=== PATIENT | female | born 1990 | race Caucasian/White ===

== ENCOUNTER 2017-10-14 09:27 | Emergency (ER) | payer MEDICAID, OTHER ==
[2017-10-14 09:37] VITALS: O2SAT 99
--- NOTE | 2017-10-14 10:27 | C.PDOC ---
History Of Present Illness 27 year old female presents to the ED with complaints of seizure, jerk-like movements for one month. Patient reports she is awake and alert during the "twitching" episodes with no known precipitates. Patient denies incontinence to urine or stool, tongue biting, knew medications, history of seizure, exposure to toxins of any known attributing issues, or other complaints at this time. Time Seen by Provider: 10/14/17 09:45 Chief Complaint (Nursing): Seizure History Per: Patient History/Exam Limitations: no limitations Recent Seizure Activity Began: Unknown Length Of Seizures (Duration): Seconds Quality Of Seizure: Generalized Precipitating Factor(s): None Post-ictal Period: No Recent travel outside of the [place]: No Past Medical History Reviewed: Historical Data, Nursing Documentation, Vital Signs Vital Signs: Last Vital Signs Temp 97.9 F 10/14/17 09:37 Pulse 67 10/14/17 09:37 Resp 20 10/14/17 09:37 BP 110/70 10/14/17 09:37 Pulse Ox 99 10/14/17 12:18 - Medical History PMH: Anxiety, Asthma, Bronchitis, Pneumonia Surgical History: Appendectomy (2005) - [facility] Procedures CLOSURE SKIN & SUBCUTANEOUS NEC (11/02/14) Family History: States: Unknown Family Hx - Social History Hx Alcohol Use: Yes Hx Substance Use: No - Immunization History Hx Tetanus Toxoid Vaccination: (UTD) Hx Influenza Vaccination: No Hx Pneumococcal Vaccination: No Review Of Systems Constitutional: Negative for: Fever, Chills Cardiovascular: Negative for: Chest Pain, Palpitations Respiratory: Negative for: Cough, Shortness of Breath Gastrointestinal: Negative for: Nausea, Vomiting, Abdominal Pain, Diarrhea Physical Exam - Physical Exam Appears: Non-toxic, No Acute Distress Skin: Warm, Dry, No Rash Head: Atraumatic, Normacephalic, No Tenderness Eye(s): bilateral: Normal Inspection, PERRL, EOMI Oral Mucosa: Moist Tongue: Normal Appearing, No Bite Neck: Normal ROM, Supple Chest: Symmetrical, No Deformity Cardiovascular: Rhythm Regular, No Murmur Respiratory: No Rales, No Rhonchi, No Wheezing, Other (clear to auscultation bilaterally ) Gastrointestinal/Abdominal: Soft, No Tenderness, No Distention, No Guarding, No Rebound Extremity: Normal ROM, No Tenderness Neurological/Psych: Oriented x3, Normal Speech, Normal Cognition, Normal Cranial Nerves, No Cerebellar Signs, Normal Motor, Normal Sensation ED Course And Treatment - Laboratory Results Result Diagrams: 10/14/17 10:30 10/14/17 10:30 O2 Sat by Pulse Oximetry: 99 (RA) Pulse Ox Interpretation: Normal - CT Scan/US Head CT W/O contrast Other Rad Studies (CT/US): Read By Radiologist, Radiology Report Reviewed CT/US Interpretation: FINDINGS: HEMORRHAGE: No intracranial hemorrhage. BRAIN : No mass effect or edema. No atrophy or chronic microvascular ischemic changes.Please note that MRI with diffusion imaging is more sensitive in the detection of acute ischemic event. VENTRICLES: No hydrocephalus. CALVARIUM: Unremarkable. PARANASAL SINUSES: Unremarkable as visualized. No significant inflammatory changes. MASTOID AIR CELLS: Unremarkable as visualized. No inflammatory changes. OTHER FINDINGS: None. IMPRESSION: No acute intracranial pathology identified. Progress Note: Head CT, blood work, and labs were ordered. Results were within normal limits, patient instructed to follow up with Dr. Valladares as neurologist. Disposition Counseled Patient/Family Regarding: Studies Performed, Diagnosis, Need For Followup - Disposition Referrals: Addison Valladares MD [Staff Provider] - Disposition: HOME/ ROUTINE Disposition Time: 12:15 Condition: STABLE Additional Instructions: follow up with neurology in 2 days call to make an appointment return to hospital if symptoms worsens or progress Instructions: Tremors (ED) Forms: [facility] (Chinese), General Discharge Instructions - Clinical Impression Clinical Impression: Involuntary movements, Twitching - Scribe Statement The provider has reviewed the documentation as recorded by the Scribmandi Griffin All medical record entries made by the Pavelibmandi were at my direction and personally dictated by me. I have reviewed the chart and agree that the record accurately reflects my personal performance of the history, physical exam, medical decision making, and the department course for this patient. I have also personally directed, reviewed, and agree with the discharge instructions and disposition.
[2017-10-14 10:39] LABS: BASO % 0.4 % (0.0-2.0); EOS # 0.1 K/uL (0.0-0.7); EOS % 2.2 % (0.0-4.0); HEMATOCRIT 37.5 % (34.0-47.0); LYMPH # 1.7 K/uL (1.0-4.3); LYMPH % 41.7 % (20.0-40.0); MEAN CELL VOLUME 89.5 fL (81.0-99.0); MEAN CORPUSCULAR HEMOGLOBIN 30.2 pg (27.0-31.0); MEAN CORPUSCULAR HGB CONC 33.8 g/dL (33.0-37.0); MONO # 0.4 K/uL (0.0-0.8); MONO % 9.8 % (0.0-10.0); NRBC % 0.1 % (0.0-2.0); RED CELL DISTRIBUTION WIDTH 12.2 % (11.5-14.5); WHITE BLOOD COUNT 4.1 K/uL (4.8-10.8)
[2017-10-14 10:54] LABS: RBC URINE 1 /hpf (0-3); URINE BILIRUBIN NEGATIVE (NEGATIVE); URINE BLOOD NEGATIVE (NEGATIVE); URINE COLOR Yellow (YELLOW); URINE GLUCOSE (UA) NORMAL (Normal); URINE KETONE NEGATIVE (NEGATIVE); URINE LEUKOCYTE ESTERASE NEG Leu/uL (Negative); URINE PROTEIN 1+ mg/dL (NEGATIVE); URINE UROBILINOGEN NORMAL mg/dL (0.2-1.0); WBC URINE 3 /hpf (0-5)
--- NOTE | 2017-10-14 10:56 | CT ---
PROCEDURE: CT HEAD WITHOUT CONTRAST. HISTORY: seizure COMPARISON: None available. TECHNIQUE: Axial computed tomography images were obtained through the head/brain without intravenous contrast. Radiation dose: Total exam DLP = 768.47 mGy-cm. This CT exam was performed using one or more of the following dose reduction techniques: Automated exposure control, adjustment of the mA and/or kV according to patient size, and/or use of iterative reconstruction technique. FINDINGS: HEMORRHAGE: No intracranial hemorrhage. BRAIN: No mass effect or edema. No atrophy or chronic microvascular ischemic changes.Please note that MRI with diffusion imaging is more sensitive in the detection of acute ischemic event. VENTRICLES: No hydrocephalus. CALVARIUM: Unremarkable. PARANASAL SINUSES: Unremarkable as visualized. No significant inflammatory changes. MASTOID AIR CELLS: Unremarkable as visualized. No inflammatory changes. OTHER FINDINGS: None. IMPRESSION: No acute intracranial pathology identified.
[2017-10-14 11:23] LABS: THYROID STIMULATING HORMONE 0.58 mIU/L (0.46-4.68)
[2017-10-14 11:57] LABS: ALB/GLOB RATIO 1.6 (1.0-2.1); ALKALINE PHOSPHATASE 53 U/L (38-126); ALT/SGPT 27 U/L (9-52); AST/SGOT 17 U/L (14-36); BLOOD UREA NITROGEN 8 mg/dL (7-17); CALCIUM 8.9 mg/dl (8.6-10.4); CARBON DIOXIDE 26 mmol/L (22-30); CHLORIDE 102 mmol/L (98-107); GFR AFRICAN-AMERICAN > 60; GLUCOSE,RANDOM 91 mg/dL (65-105); MAGNESIUM 1.9 mg/dL (1.6-2.3); POTASSIUM 3.6 mmol/L (3.6-5.2); SODIUM 137 mmol/L (132-148); TOTAL PROTEIN 7.2 g/dL (6.3-8.3)
[2017-10-14 12:44] VITALS: BP 102/62; PULSE 72; RESP 18; TEMP 97.8
== END 2017-10-14 12:56 | disposition home or self-care (01) ==
LOC: C.ER 09:27
DX: R25.3 Fasciculation (principal)

== ENCOUNTER 2018-10-27 09:55 | Emergency (ER) | payer MEDICAID, OTHER ==
[2018-10-27 09:55] VITALS: BMI 22.3
[2018-10-27 10:16] VITALS: TEMP 97.9
[2018-10-27 13:18] LABS: BARBITURATES, UR NEGATIVE (NEGATIVE); BENZODIAZEPINES, UR NEGATIVE (NEGATIVE); OPIATES, UR NEGATIVE (NEGATIVE); PHENCYCLIDINE, UR NEGATIVE (NEGATIVE)
--- NOTE | 2018-10-27 13:24 | C.PDOC ---
History Of Present Illness 28 yo female w/PMHx of "anxiety attack gradually developed for past week". Pt sts, " suffer from anxiety attack for past year and when its getting worse, feel my chest tightness". Pt admits, was seen yesterday at [facility] " did not get any help". At present time, pt appears depressed, crying. Pt denies headache, dizziness, visual changes, neck pain, palpitation, diaphoresis, chest pain, abd. pain, N/V/D, UTI sx. Time Seen by Provider: 10/27/18 11:35 Chief Complaint (Nursing): Anxiety History Per: Patient Past Medical History Reviewed: Historical Data, Nursing Documentation, Vital Signs Vital Signs: Last Vital Signs Temp 97.9 F 10/27/18 10:08 Pulse 99 H 10/27/18 10:08 Resp 18 10/27/18 10:08 BP 123/79 10/27/18 10:08 Pulse Ox 100 10/27/18 10:08 - Medical History PMH: Anxiety, Asthma, Bronchitis, Pneumonia Denies: Diabetes, Hepatitis, HIV, HTN, Chronic Kidney Disease, Seizures, Sexually Transmitted Disease Surgical History: Appendectomy (2005) - [facility] Procedures CLOSURE SKIN & SUBCUTANEOUS NEC (11/02/14) Family History: States: Unknown Family Hx - Social History Hx Tobacco Use: No Hx Alcohol Use: No Hx Substance Use: No - Immunization History Hx Tetanus Toxoid Vaccination: (UTD) Hx Influenza Vaccination: No Hx Pneumococcal Vaccination: No Review Of Systems Except As Marked, All Systems Reviewed And Found Negative. Constitutional: Negative for: Fever, Chills Eyes: Negative for: Vision Change ENT: Negative for: Throat Pain Cardiovascular: Negative for: Palpitations, Orthopnea, Edema, Light Headedness Respiratory: Negative for: Cough Gastrointestinal: Negative for: Nausea, Vomiting, Abdominal Pain, Diarrhea Genitourinary: Negative for: Dysuria Musculoskeletal: Negative for: Neck Pain Neurological: Negative for: Weakness, Numbness, Altered Mental Status, Dizziness Physical Exam - Physical Exam Appears: Well, Non-toxic, Other (crying, depressed) Skin: Normal Color, Warm, Dry Head: Atraumatic, Normacephalic Eye(s): bilateral: PERRL Nose: No Flaring Oral Mucosa: Moist Throat: No Erythema Neck: Trachea Midline, Supple, Other Cardiovascular: Rhythm Regular, No Murmur, No JVD, Other ((-) carotid bruits B/L) Respiratory: No Decreased Breath Sounds, No Accessory Muscle Use, No Stridor, No Wheezing Gastrointestinal/Abdominal: Soft, No Tenderness, No Distention, No Guarding Back: No CVA Tenderness Extremity: Normal ROM, No Calf Tenderness, No Deformity, No Swelling Neurological/Psych: Oriented x3, Normal Speech, Normal Motor, Normal Sensation, Normal Reflexes ED Course And Treatment ECG: Interpreted By Me, Viewed By Me ECG Rhythm: Sinus Rhythm ECG Interpretation: Normal Interpretation Of ECG: SR@81/min, NAD, no acute T wave or ST-T Changes O2 Sat by Pulse Oximetry: 100 Pulse Ox Interpretation: Normal Progress Note: On re-eval, pt appears much more comofrtable now, awake, happy, smilling, denies any active complaints. Pt is afebrile, hemodynamicaly stable. NOn-toxic. PuslEOx 100% RA. neck: Supple, (-) JVD. Lungs: CTA B/L, BS equal B/L. CVS: (+)S1S2, reg. Abd: benign. neuorlogicaly intact. EKG- no acute abnormalities. Pt was seen by [facility], and psychiatricaly cleared with scheduled outpt psych appoitment. Pt advised, stable for discharge now. Disposition Counseled Patient/Family Regarding: Studies Performed, Diagnosis, Need For Followup - Disposition Referrals: Pankaj Jovel MD [Medical Doctor] - Disposition: HOME/ ROUTINE Disposition Time: 13:19 Condition: STABLE Additional Instructions: Follow up with Psychiatrist as per discussed/scheduled by PES for further evaluation and treatment return if any new changes. Instructions: Anxiety, Adult (DC) - Clinical Impression Clinical Impression: Anxiety
[2018-10-27 13:36] VITALS: BP 132/85; PULSE 84; RESP 16; O2SAT 98
--- NOTE | 2018-10-28 23:51 | CARD ---
APPROVED REPORT Date of service: 10/27/2018 EKG Measurement Heart [id number] <Conclusion> Sinus rhythm with sinus arrhythmia with short LA Otherwise normal ECG
== END 2018-10-27 13:35 | disposition home or self-care (01) ==
LOC: C.ER 09:55
DX: F41.9 Anxiety disorder, unspecified (principal)

== ENCOUNTER 2018-12-09 07:27 | Emergency (ER) | payer OTHER ==
[2018-12-09 07:27] VITALS: BMI 22.3
[2018-12-09 07:41] VITALS: RESP 18; TEMP 97.5
[2018-12-09] MEDS ORDERED: Sodium Chloride 0.9% 1,000 ML IV ONE (08:50)
--- NOTE | 2018-12-09 08:50 | C.PDOC ---
History Of Present Illness 28 y/o female presents to the ER complaining of myalgia which has become gradually worse over the past 3 days. Patient states that she is not able to control her body movements. Patient reports that she has cramping in her whole body which is causing her stomach to contract. She notes that she has associated nausea and abdominal wall cramping.Denies having fever and chills. Of note, patient has history of anxiety, she denies taking regular medications for anxiety. Time Seen by Provider: 12/09/18 08:22 Chief Complaint (Nursing): Abdominal Pain History Per: Patient History/Exam Limitations: no limitations Onset/Duration Of Symptoms: Days Current Symptoms Are (Timing): Still Present Severity: Moderate Past Medical History Reviewed: Historical Data, Nursing Documentation, Vital Signs Vital Signs: Last Vital Signs Temp 97.5 F L 12/09/18 07:37 Pulse 109 H 12/09/18 07:37 Resp 18 12/09/18 07:37 BP 110/65 12/09/18 07:37 Pulse Ox 97 12/09/18 07:37 - Medical History PMH: Anxiety, Asthma, Bronchitis, Pneumonia Denies: Diabetes, Hepatitis, HIV, HTN, Chronic Kidney Disease, Seizures, Sexually Transmitted Disease Surgical History: Appendectomy (2005) - [facility] Procedures CLOSURE SKIN & SUBCUTANEOUS NEC (11/02/14) Family History: States: No Known Family Hx - Social History Hx Tobacco Use: No Hx Alcohol Use: No Hx Substance Use: No - Immunization History Hx Tetanus Toxoid Vaccination: (UTD) Hx Influenza Vaccination: No Hx Pneumococcal Vaccination: No Review Of Systems Except As Marked, All Systems Reviewed And Found Negative. Constitutional: Negative for: Fever, Chills Gastrointestinal: Positive for: Nausea, Abdominal Pain. Negative for: Vomiting, Diarrhea Genitourinary: Negative for: Dysuria, Hematuria Neurological: Positive for: Other (myalgia) Physical Exam - Physical Exam Appears: No Acute Distress Skin: Normal Color, Warm, Dry Head: Atraumatic, Normacephalic Eye(s): bilateral: Normal Inspection Cardiovascular: Rhythm Regular Respiratory: Other (NARD) Gastrointestinal/Abdominal: Soft, No Tenderness, No Guarding, No Rebound, Other (contracted) Neurological/Psych: Oriented x3, Normal Speech, Other (neuro: periodic intermittent asymmetric movements distractible psych: mildly anxious, calm, cooperative) ED Course And Treatment - Laboratory Results Result Diagrams: 12/09/18 09:08 12/09/18 09:08 Urine POC: Negative O2 Sat by Pulse Oximetry: 97 (RA) Pulse Ox Interpretation: Normal Progress - Re-Evaluation Re-evaluation Note: 12/09/18 10:34 MYALGIA, CONTRACTIONS RESOLVED. PS FEELS BETTER - Data Reviewed Data Reviewed: Lab, Old records Medical Decision Making Medical Decision Making: Plan: --Labs --UA --HCG --IV Fluids --Toradol IV --Versed IV --Xanax PO --Zofran IV Disposition Counseled Patient/Family Regarding: Studies Performed, Diagnosis, Need For Followup - Disposition Referrals: YOUR,PMD [Other] Disposition: HOME/ ROUTINE Disposition Time: 10:34 Condition: IMPROVED Instructions: Muscle and Bone Pain (DC) Forms: [facility] (Yi), Work Excuse - Clinical Impression Clinical Impression: Abdominal wall pain, Anxiety, Myalgia - Scribe Statement The provider has reviewed the documentation as recorded by the Shweta Fairchild Provider Attestation: All medical record entries made by the Shweta were at my direction and personally dictated by me. I have reviewed the chart and agree that the record accurately reflects my personal performance of the history, physical exam, medical decision making, and the department course for this patient. I have also personally directed, reviewed, and agree with the discharge instructions and disposition
[2018-12-09] MEDS ORDERED: Midazolam 2 MG/2 ML VIAL IV STA (08:51)
[2018-12-09 08:55] LABS: SQUAMOUS EPITHIAL 5 /hpf (0-5); URINE BILIRUBIN NEGATIVE (NEGATIVE); URINE BLOOD NEGATIVE (NEGATIVE); URINE CLARITY Hazy (Clear); URINE COLOR Yellow (YELLOW); URINE GLUCOSE (UA) NORMAL (Normal); URINE LEUKOCYTE ESTERASE NEG Leu/uL (Negative); URINE PROTEIN NEGATIVE (NEGATIVE); URINE UROBILINOGEN NORMAL mg/dL (0.2-1.0)
[2018-12-09] MEDS ORDERED: Sodium Chloride 0.9% 1,000 ML ONE (09:02)
[2018-12-09 09:13] LABS: BASO % 0.4 % (0.0-2.0); EOS # 0.1 K/uL (0.0-0.7); EOS % 2.7 % (0.0-4.0); HEMOGLOBIN 12.6 g/dL (11.0-16.0); LYMPH # 1.5 K/uL (1.0-4.3); LYMPH % 32.5 % (20.0-40.0); MEAN CELL VOLUME 89.6 fL (81.0-99.0); MEAN CORPUSCULAR HEMOGLOBIN 30.6 pg (27.0-31.0); MEAN CORPUSCULAR HGB CONC 34.1 g/dL (33.0-37.0); MEAN PLATELET VOLUME 9.6 fL (7.2-11.7); MONO # 0.5 K/uL (0.0-0.8); MONO % 10.1 % (0.0-10.0); NEUT # 2.5 K/uL (1.8-7.0); NEUT % 54.3 % (50.0-75.0); RBC 4.11 Mil/uL (3.80-5.20); RED CELL DISTRIBUTION WIDTH 11.8 % (11.5-14.5); WHITE BLOOD COUNT 4.7 K/uL (4.8-10.8)
[2018-12-09] MEDS ORDERED: Midazolam 2 MG/2 ML VIAL ONE (09:18)
[2018-12-09 09:34] LABS: ALB/GLOB RATIO 1.3 (1.0-2.1); ALBUMIN 4.4 g/dL (3.5-5.0); ALT/SGPT 27 U/L (9-52); AST/SGOT 28 U/L (14-36); BLOOD UREA NITROGEN 11 mg/dL (7-17); CALCIUM 8.9 mg/dl (8.6-10.4); GFR NON-AFRICAN AMERICAN > 60
[2018-12-09 10:42] VITALS: BP 96/59; PULSE 65; O2SAT 99
== END 2018-12-09 10:43 | disposition home or self-care (01) ==
LOC: C.ER 07:27
DX: R10.9 Unspecified abdominal pain (principal); M79.10 Myalgia, unspecified site; F41.9 Anxiety disorder, unspecified
CPT/HCPCS: 80053; 81001; 85025; 96361; 96374; 96375; 99284; J1885; J2250; J2405; J7030